=== PATIENT | male | born 1995 | race Hispanic/Latino ===

== ENCOUNTER → 2016-12-02 | Outpatient (REF) | payer OTHER ==
[~2016-12-02] MED LIST: FLUTISP; LEVO750T PO; OCEA0.65; TYLE325T5 PO; abx; zofran
== END ==
LOC: M SFHCLERA 17:44
PROVIDERS: ATTEND Physician Assistant
DX: R50.9 Fever, unspecified (principal)

== ENCOUNTER → 2017-04-02 | Outpatient (CLI) | payer OTHER ==
--- NOTE | 2017-04-02 10:14 | REP ---
Chest x-ray: Two views. History: Chest pain. . Comparison study: No comparisons . Findings: The lungs are well inflated and free of infiltrate. The pleural angles are sharp. The heart size is normal. Pulmonary vasculature is not increased. No significant bony abnormality is seen. Impression: Negative chest x-ray. Signed by Sukumar Bauer MD 04/02/2017 10:06 A
== END ==
LOC: M LRY 08:54
PROVIDERS: ATTEND Physician Assistant
DX: R07.9 Chest pain, unspecified (principal)

== ENCOUNTER → 2017-04-02 | Outpatient (REF) | payer OTHER ==
[2017-04-02 11:32] LABS: MEAN CORPUSCULAR HEMOGLOBIN 27.4 pg (27.0-33.0); MEAN CORPUSCULAR HGB CONC 32.5 g/dl (32.0-36.5); MEAN CORPUSCULAR VOLUME 84.4 fl (80.0-96.0); RED CELL DISTRIBUTION WIDTH 13.8 % (11.5-14.5); WHITE BLOOD COUNT 7.2 K/mm3 (4.0-10.0)
[2017-04-02 12:07] LABS: ALBUMIN 3.8 GM/DL (3.2-5.2); ALBUMIN/GLOBULIN RATIO 1.06 (1.00-1.93); ALKALINE PHOSPHATASE 66 U/L (45-117); ALT/SGPT 45 U/L (12-78); ANION GAP 6 MEQ/L (8-16); AST/SGOT 21 U/L (15-37); BILIRUBIN,TOTAL 0.6 MG/DL (0.2-1.0); BLOOD UREA NITROGEN 13 MG/DL (7-18); CALCIUM LEVEL 9.8 MG/DL (8.5-10.1); CARBON DIOXIDE LEVEL 30 MEQ/L (21-32); CHLORIDE LEVEL 103 MEQ/L (98-107); CREATININE FOR GFR 0.84 MG/DL (0.70-1.30); GLOMERULAR FILTRATION RATE > 60.0 (>60); GLUCOSE, FASTING 78 MG/DL (70-105); POTASSIUM SERUM 5.1 MEQ/L (3.5-5.1); SODIUM LEVEL 139 MEQ/L (136-145); TOTAL PROTEIN 7.4 GM/DL (6.4-8.2)
== END ==
LOC: M SFHCLERA 08:42
PROVIDERS: ATTEND Physician Assistant
DX: R07.9 Chest pain, unspecified (principal)

== ENCOUNTER → 2017-08-13 | Outpatient (REF) | payer OTHER ==
[~2017-08-13] MED LIST changes: +AMOX875T2 PO; +NORCOTAB PO; +SENN1TAB2 PO
== END ==
LOC: M SFHCLERA 07:53
PROVIDERS: ATTEND Family Medicine
DX: Z11.4 Encounter for screening for human immunodeficiency virus [HIV] (principal)

== ENCOUNTER 2017-08-17 13:55 | Inpatient (IN) | payer OTHER ==
[~2017-08-17] VITALS: Ht 177.8 cm; Wt 112.7 kg
[~2017-08-17 13:55] MED LIST changes: -AMOX875T2 PO; -NORCOTAB PO; -SENN1TAB2 PO
[2017-08-17] MEDS ORDERED: NS 1,000 ML IV ONE (17:45)
[2017-08-17 18:13] LABS: BASO # 0.1 10^3/uL (0.0-0.2); BASO % 0.4 % (0.0-1.0); EOS # 0.2 10^3/uL (0.0-0.50); EOS % 1.2 % (0.0-3.0); IMMATURE GRANULOCYTE % 0.2 % (0-0); LYMPH # 1.9 10^3/uL (1.5-6.5); LYMPH % 14.3 % (24.0-44.0); MEAN CORPUSCULAR HGB CONC 32.2 g/dl (32.0-36.5); MEAN CORPUSCULAR VOLUME 83.9 fl (80.0-96.0); MONO # 0.8 10^3/uL (0.0-0.8); MONO % 6.5 % (0.0-5.0); NEUTROPHILS % 77.4 % (36.0-66.0); PLATELET COUNT, AUTOMATED 276 10^3/uL (150-450); RED CELL DISTRIBUTION WIDTH 12.9 % (11.5-14.5)
[2017-08-17 18:52] LABS: ALBUMIN 4.2 GM/DL (3.2-5.2); ALBUMIN/GLOBULIN RATIO 0.93 (1.00-1.93); ALKALINE PHOSPHATASE 78 U/L (45-117); ALT/SGPT 36 U/L (12-78); AMYLASE 65 U/L (25-115); ANION GAP 7 MEQ/L (8-16); AST/SGOT 14 U/L (15-37); BILIRUBIN,DIRECT 0.2 MG/DL (0.0-0.2); BILIRUBIN,TOTAL 0.8 MG/DL (0.2-1.0); BLOOD UREA NITROGEN 11 MG/DL (7-18); CALCIUM LEVEL 9.5 MG/DL (8.5-10.1); CARBON DIOXIDE LEVEL 30 MEQ/L (21-32); CHLORIDE LEVEL 102 MEQ/L (98-107); CREATININE FOR GFR 0.91 MG/DL (0.70-1.30); GLOMERULAR FILTRATION RATE > 60.0 (>60); GLUCOSE, FASTING 81 MG/DL (70-105); POTASSIUM SERUM 3.6 MEQ/L (3.5-5.1); SODIUM LEVEL 139 MEQ/L (136-145); TOTAL PROTEIN 8.7 GM/DL (6.4-8.2)
[2017-08-17] MEDS ORDERED: ISOVUE-370 76% 100ML VIAL (Q9967) As Ordered ONE (19:01)
[2017-08-17] MEDS ORDERED: ZOSYN 3.375 GM VIAL (J2543) As Ordered ONE (20:13)
[2017-08-17] MEDS ORDERED: PIPERACILLIN/TAZOBACTAM SOD 3.375 GM in D5W 50 ML IV ONE (20:15)
[2017-08-17] MEDS ORDERED: BUPIVACAINE/EPIN 0.25% 30 ML VIAL As Ordered ONE (20:23)
[2017-08-17] MEDS ORDERED: MORPHINE 2 MG/ML 1ML SYRINGE IV PRN ×2 (20:30→22:15)
[2017-08-17] MEDS ORDERED: ACETAMINOPHEN TAB 650MG DOSE (2X325MG) PO PRN (20:30)
[2017-08-17] MEDS ORDERED: LIDOCAINE 2% INJ 100 MG/5 ML SDV (FOR ANES.) As Ordered ONE (20:34)
[2017-08-17] MEDS ORDERED: PROPOFOL 200 MG/20 ML VIAL As Ordered ONE (20:34)
[2017-08-17] MEDS ORDERED: METOCLOPRAMIDE INJ 10MG/2ML VIAL (J2765) As Ordered ONE (20:34)
[2017-08-17] MEDS ORDERED: SUCCINYLCHOLINE 100 MG/5 ML SYRINGE (J0330) As Ordered ONE (20:34)
[2017-08-17] MEDS ORDERED: ROCURONIUM BROMIDE 50 MG/5 ML VIAL/SYRINGE As Ordered ONE (20:34)
[2017-08-17] MEDS ORDERED: MIDAZOLAM INJ 2 MG/2 ML VIAL (J2250) As Ordered ONE (20:34)
[2017-08-17] MEDS ORDERED: fentaNYL 250 MCG/5 ML INJECTION (J3010) As Ordered ONE (20:35)
[2017-08-17] MEDS ORDERED: ONDANSETRON 4MG/2ML VIAL (J2405) As Ordered ONE (21:18)
[2017-08-17] MEDS ORDERED: GLYCOPYRROLATE INJ 0.2 MG/ML 2 ML VIAL As Ordered ONE (21:19)
[2017-08-17] MEDS ORDERED: NEOSTIGMINE 10 MG/10 ML VIAL (J2710) As Ordered ONE (21:19)
[2017-08-17] MEDS ORDERED: KETOROLAC 60 MG/2 ML VIAL (J1885) As Ordered ONE (21:21)
[2017-08-17] MEDS ORDERED: ePHEDrine SULFATE 25 MG/5 ML(5MG/ML) SYRINGE As Ordered ONE (21:38)
[2017-08-17] MEDS ORDERED: PERCOCET 5MG/325MG TAB PO PRN (22:15)
[2017-08-17] MEDS ORDERED: LR 1,000 ML IV SCH (22:15)
[2017-08-17] MEDS ORDERED: fentaNYL 100 MCG/2 ML INJECTION (J3010) IV PRN (22:15)
[2017-08-17] MEDS ORDERED: ONDANSETRON 4MG/2ML VIAL (J2405) IV PRN (22:15)
[2017-08-17 23:05] VITALS: BP 135/73
[2017-08-17] MEDS: ONDANSETRON 4MG/2ML VIAL (J2405) IV PRN (23:13)
[2017-08-17] MEDS: SENOKOT S TAB PO SCH (23:13)
[2017-08-17] MEDS: LR 1,000 ML IV SCH (23:13)
[2017-08-17 23:30] VITALS: BP 133/70
[2017-08-18] VITALS (9 sets, daily range): BP systolic 114–141; BP diastolic 53–81
[2017-08-18] MEDS: PIPERACILLIN/TAZOBACTAM SOD 3.375 GM in D5W 50 ML IV SCH ×4 (02:21→20:55)
[2017-08-18] MEDS: HEPARIN SOD (PORCINE) 5000 UNITS/ML VIAL SC SCH ×3 (05:45→21:19)
[2017-08-18] MEDS: NORCO, ANEXSIA 5/325MG TABLET (HYDROcodone/ACETAMINOPHEN) PO PRN ×2 (06:16→21:20)
[2017-08-18 06:54] LABS: MEAN CORPUSCULAR HGB CONC 32.2 g/dl (32.0-36.5); MEAN CORPUSCULAR VOLUME 83.8 fl (80.0-96.0); PLATELET COUNT, AUTOMATED 271 10^3/uL (150-450); RED CELL DISTRIBUTION WIDTH 13.1 % (11.5-14.5); WHITE BLOOD COUNT 15.6 10^3/uL (4.0-10.0)
[2017-08-18 07:17] LABS: ANION GAP 5 MEQ/L (8-16); BLOOD UREA NITROGEN 9 MG/DL (7-18); CALCIUM LEVEL 8.8 MG/DL (8.5-10.1); CARBON DIOXIDE LEVEL 30 MEQ/L (21-32); CHLORIDE LEVEL 106 MEQ/L (98-107); CREATININE FOR GFR 1.17 MG/DL (0.70-1.30); GLOMERULAR FILTRATION RATE > 60.0 (>60); GLUCOSE, FASTING 108 MG/DL (70-105); MAGNESIUM LEVEL 1.8 MG/DL (1.8-2.4); POTASSIUM SERUM 4.4 MEQ/L (3.5-5.1); SODIUM LEVEL 141 MEQ/L (136-145)
[2017-08-18] MEDS: LR 1,000 ML IV SCH (07:46)
--- NOTE | 2017-08-18 09:16 | HPE ---
DATE OF ADMISSION: 08/17/2017 CHIEF COMPLAINT: Abdominal pain. HISTORY OF PRESENT ILLNESS: The patient is a 22-year-old male who presents with right lower quadrant abdominal pain that has been present for the past week. He had persistent pain that was not getting any better. No signs of any fevers, slight amount of nausea. He came into the emergency room today because the pain was persistent. A CT scan was obtained, which revealed that there was a very dilated appendix with a fecalith in it. No other complaints at this time. Only other abdominal surgery was bilateral inguinal hernia repair when he was about 1 years old. PAST MEDICAL HISTORY: Negative. PAST SURGICAL HISTORY: Bilateral inguinal hernia repair. ALLERGIES: None. HOME MEDICATIONS: None. SOCIAL HISTORY: Denies drug, alcohol, tobacco abuse. FAMILY HISTORY: Noncontributory. REVIEW OF SYSTEMS: Pertinent positives as listed in the history of present illness (HPI). PHYSICAL EXAMINATION: General: Alert and oriented times three. No acute distress. Vital signs: Temperature 99.1, pulse 98, respirations 16, blood pressure 149/86, pulse oximetry 99% on room air. HEENT: Pupils equally round and react to light accommodation. Heart: S1, S2, regular rate and rhythm. Lungs: Clear to auscultation bilaterally. Abdomen: Soft, tender above the patient's right lower quadrant. No rebounding or rigidity. Localized guarding. Extremities: No clubbing, cyanosis or edema. LABORATORY DATA: White count 13, hemoglobin 16.1, platelets 276. IMAGING STUDIES: CT abdomen and pelvis reveals a dilated appendix 14 mm along with a 9 mm appendicolith within it. ASSESSMENT/PLAN: The patient is a 22-year-old male with signs and symptoms consistent with acute appendicitis. RECOMMENDATION: To proceed with laparoscopic, possible open appendectomy. Risks and benefits of the procedure not limited to but including bleeding, infection, hernia formation, damage to surrounding structures, need for further surgery were discussed in detail with the patient. Informed consent was obtained. Procedure was planned. Postoperatively, he will likely be kept in the hospital overnight, kept on intravenous (IV) fluids and antibiotics. Will plan to discharge home in the morning as long as he is afebrile and white count shows signs of improvement.
[2017-08-18] MEDS: SENOKOT S TAB PO SCH ×2 (09:59→20:55)
--- NOTE | 2017-08-18 11:12 | RO ---
DATE OF PROCEDURE: 08/17/2017 PREOPERATIVE DIAGNOSIS: Acute appendicitis. POSTOPERATIVE DIAGNOSIS: Acute appendicitis. PROCEDURE: Laparoscopic appendectomy. SURGEON: Brett Nevarez DO ACCOUNT ASSOCIATE: None. ANESTHESIA: General. ESTIMATED BLOOD LOSS (EBL): 10 mL. COMPLICATIONS: None. INDICATIONS FOR PROCEDURE: Patient is a 22-year-old male presents with a one week history of right lower quadrant pain. In the emergency room (ER) had a CT scan which showed dilated appendix with a appendicolith within it. Recommendation was to proceed with laparoscopic possible open appendectomy. Risks and benefits of the procedure, not limited to, but including, bleeding, infection, hernia formation, damage to surrounding structures, need for further surgery discussed in detail with the patient. Informed consent was obtained. Procedure was planned. DESCRIPTION OF PROCEDURE: Patient brought back to operating room 3. After sufficient sedation the abdomen was sterilely prepped and draped. Next, time-out was done to confirm proper patient proper procedure. Following that, a 5 mm incision was made in the left upper quadrant. Veress needle was inserted, and the abdomen was insufflated 50 mmHg. Next, the Veress needle was removed, and a 5 mm Optiview port was used to gain access to the abdomen. Once the abdomen was entered, another 10 mm port was placed infraumbilically in the midline, another 5 mm port suprapubically in the midline. Patient was rotated to the left. The periappendiceal fat was carefully dissected free from the appendix. There was a retrocecal appendix on the right. The peritoneum had to be incised from the base of the cecum all the way up around to the lateral wall the cecum to free up the base of the appendix as it was curving posteriorly. The appendix was carefully dissected free circumferentially starting at the base. Once this was carefully freed up, I was able to keep it elevated and go through the rest of the mesoappendix using the Enseal. Once this was completed, two PDS Endoloops were placed around the base of the appendix to ligate it. Appendix was then amputated using the Enseal, brought out through the 10 mm port site in an EndoCatch bag. Right lower quadrant was then aspirated to make sure hemostasis was achieved. A #19-[place] Keon drain was placed in the right lower quadrant alongside the bed of where the appendix was lying, brought out through the suprapubic incision site, sutured in place with #2-0 silk suture. Abdomen was then desufflated. Skin incisions closed #4-0 Vicryl subcuticular sutures. The abdomen was cleaned and dried. Steri-Strips, 4x4, and tape were applied, thus ending procedure.
[2017-08-18] MEDS: ONDANSETRON 4MG/2ML VIAL (J2405) IV PRN (11:45)
[2017-08-18] MEDS: KETOROLAC 30 MG/ML VIAL (J1885) IV PRN (11:45)
--- NOTE | 2017-08-18 14:55 | REP ---
Clinical: Periumbilical and right lower quadrant pain. Technique: Axial contrast enhanced images from the lung bases to the pubic symphysis using 100 ml Isovue 370 intravenous contrast material with coronal and sagittal re-formations. Findings: Findings consistent with acute appendicitis include a dilated thickened appendix measuring 15 mm diameter with 10 mm appendicolith, periappendiceal inflammatory stranding, small amount of free fluid, and reactive adenopathy (images 80 - 115). No associated bowel obstruction, free air to suggest perforation, or drainable collection/abscess. The remainder of the small and large bowel is grossly unremarkable. Visualized heart and pericardium normal. Liver, spleen, pancreas, gallbladder, bilateral adrenal glands and kidneys are normal. Pelvis demonstrates normal bladder and age appropriate prostate/seminal vesicles. No retroperitoneal adenopathy. No obvious mass lesion. Vasculature is normal. Surrounding musculoskeletal structures are intact. Lung bases demonstrate trace right basilar atelectasis. Impression: Acute appendicitis with a 10 mm appendicolith and moderate periappendiceal stranding, reactive adenopathy, and pelvic fluid. No bowel obstruction/perforation or drainable collection/ abscess. Signed by Craig Escalante MD 08/18/2017 02:46 P
[2017-08-19] MEDS: PIPERACILLIN/TAZOBACTAM SOD 3.375 GM in D5W 50 ML IV SCH ×4 (01:43→21:00)
[2017-08-19 03:00] VITALS: BP 119/69
[2017-08-19] MEDS: HEPARIN SOD (PORCINE) 5000 UNITS/ML VIAL SC SCH ×3 (06:17→21:00)
[2017-08-19 06:48] LABS: MEAN CORPUSCULAR HEMOGLOBIN 27.1 pg (27.0-33.0); MEAN CORPUSCULAR VOLUME 84.6 fl (80.0-96.0); PLATELET COUNT, AUTOMATED 269 10^3/uL (150-450); RED CELL DISTRIBUTION WIDTH 13.2 % (11.5-14.5); WHITE BLOOD COUNT 18.4 10^3/uL (4.0-10.0)
[2017-08-19 07:04] LABS: ANION GAP 8 MEQ/L (8-16); BLOOD UREA NITROGEN 12 MG/DL (7-18); CARBON DIOXIDE LEVEL 28 MEQ/L (21-32); CHLORIDE LEVEL 102 MEQ/L (98-107); CREATININE FOR GFR 1.23 MG/DL (0.70-1.30); GLOMERULAR FILTRATION RATE > 60.0 (>60); GLUCOSE, FASTING 99 MG/DL (70-105); MAGNESIUM LEVEL 2.1 MG/DL (1.8-2.4); SODIUM LEVEL 138 MEQ/L (136-145)
[2017-08-19 08:45] VITALS: BP 129/67
[2017-08-19] MEDS: SENOKOT S TAB PO SCH ×2 (09:01→21:00)
[2017-08-19] MEDS: KETOROLAC 30 MG/ML VIAL (J1885) IV PRN (09:01)
[2017-08-19 11:11] LABS: MEAN CORPUSCULAR HEMOGLOBIN 27.4 pg (27.0-33.0); MEAN CORPUSCULAR HGB CONC 32.2 g/dl (32.0-36.5); MEAN CORPUSCULAR VOLUME 85.1 fl (80.0-96.0); PLATELET COUNT, AUTOMATED 259 10^3/uL (150-450); RED CELL DISTRIBUTION WIDTH 13.2 % (11.5-14.5); WHITE BLOOD COUNT 18.6 10^3/uL (4.0-10.0)
[2017-08-19 13:00] VITALS: BP 125/69
--- NOTE | 2017-08-19 15:44 | REP ---
Chest x-ray: Two views. History: Question postoperative pneumonia. . Comparison study: April 02, 2017 . Findings: Today's views are exposed at a slightly lesser level of inspiration than the prior study. The lungs are otherwise well inflated and free of infiltrate. The pleural angles are sharp. The heart size is normal. Pulmonary vasculature is not increased. No significant bony abnormality is seen. Impression: No active disease . Signed by Sukumar Bauer MD 08/19/2017 03:35 P
[2017-08-19 16:45] VITALS: BP 126/74
[2017-08-19 20:00] VITALS: BP 125/67
[2017-08-20] VITALS: BP 123/62
[2017-08-20] MEDS: PIPERACILLIN/TAZOBACTAM SOD 3.375 GM in D5W 50 ML IV SCH ×4 (02:49→20:31)
[2017-08-20] MEDS: ONDANSETRON 4MG/2ML VIAL (J2405) IV PRN (03:08)
[2017-08-20 04:00] VITALS: BP 133/69
[2017-08-20] MEDS: HEPARIN SOD (PORCINE) 5000 UNITS/ML VIAL SC SCH ×3 (06:02→21:51)
[2017-08-20 06:53] LABS: MEAN CORPUSCULAR HEMOGLOBIN 27.3 pg (27.0-33.0); MEAN CORPUSCULAR HGB CONC 32.4 g/dl (32.0-36.5); MEAN CORPUSCULAR VOLUME 84.3 fl (80.0-96.0); PLATELET COUNT, AUTOMATED 253 10^3/uL (150-450); RED CELL DISTRIBUTION WIDTH 13.1 % (11.5-14.5); WHITE BLOOD COUNT 13.8 10^3/uL (4.0-10.0)
[2017-08-20 07:15] LABS: ANION GAP 6 MEQ/L (8-16); BLOOD UREA NITROGEN 12 MG/DL (7-18); CALCIUM LEVEL 8.8 MG/DL (8.5-10.1); CARBON DIOXIDE LEVEL 30 MEQ/L (21-32); CHLORIDE LEVEL 103 MEQ/L (98-107); CREATININE FOR GFR 1.23 MG/DL (0.70-1.30); GLOMERULAR FILTRATION RATE > 60.0 (>60); GLUCOSE, FASTING 102 MG/DL (70-105); MAGNESIUM LEVEL 2.2 MG/DL (1.8-2.4); POTASSIUM SERUM 3.7 MEQ/L (3.5-5.1); SODIUM LEVEL 139 MEQ/L (136-145)
[2017-08-20 08:30] VITALS: BP 122/58
[2017-08-20] MEDS: SENOKOT S TAB PO SCH ×2 (08:35→20:32)
[2017-08-20 12:30] VITALS: BP 115/55
[2017-08-20 16:15] VITALS: BP 120/57
[2017-08-21] MEDS: PIPERACILLIN/TAZOBACTAM SOD 3.375 GM in D5W 50 ML IV SCH ×2 (01:52→08:06)
[2017-08-21 02:00] VITALS: BP 126/68
[2017-08-21] MEDS: HEPARIN SOD (PORCINE) 5000 UNITS/ML VIAL SC SCH (06:08)
[2017-08-21 07:44] LABS: MEAN CORPUSCULAR HEMOGLOBIN 26.7 pg (27.0-33.0); MEAN CORPUSCULAR HGB CONC 31.5 g/dl (32.0-36.5); MEAN CORPUSCULAR VOLUME 84.8 fl (80.0-96.0); PLATELET COUNT, AUTOMATED 290 10^3/uL (150-450); RED CELL DISTRIBUTION WIDTH 13.1 % (11.5-14.5); WHITE BLOOD COUNT 11.6 10^3/uL (4.0-10.0)
[2017-08-21 08:00] VITALS: BP 135/85
[2017-08-21] MEDS: SENOKOT S TAB PO SCH (08:06)
[2017-08-21 08:19] LABS: ANION GAP 7 MEQ/L (8-16); BLOOD UREA NITROGEN 11 MG/DL (7-18); CALCIUM LEVEL 8.7 MG/DL (8.5-10.1); CARBON DIOXIDE LEVEL 30 MEQ/L (21-32); CHLORIDE LEVEL 103 MEQ/L (98-107); CREATININE FOR GFR 0.94 MG/DL (0.70-1.30); GLOMERULAR FILTRATION RATE > 60.0 (>60); GLUCOSE, FASTING 89 MG/DL (70-105); MAGNESIUM LEVEL 2.3 MG/DL (1.8-2.4); POTASSIUM SERUM 4.4 MEQ/L (3.5-5.1); SODIUM LEVEL 140 MEQ/L (136-145)
[2017-08-21] MEDS ORDERED: AMOX875T2 PO (08:36)
[2017-08-21] MEDS ORDERED: NORCOTAB PO (08:36)
[2017-08-21] MEDS ORDERED: SENN1TAB2 PO (08:36)
--- NOTE | 2017-08-22 08:19 | DSES ---
DATE OF ADMISSION: 08/17/2017 DATE OF DISCHARGE: 08/21/2017 ADMISSION DIAGNOSIS: Perforated appendicitis. DISCHARGE DIAGNOSIS: Perforated appendicitis. HOSPITAL COURSE: The patient is a 22-year-old male who presented to the emergency room (ER) with acute appendicitis. He brought to the operating room, found to have a ruptured appendix. He underwent a laparoscopic appendectomy and had drain placed. Postoperatively, he has had difficulties with elevated white count postop day 2 and 3. This white count increased rather than decreased so he was kept in the hospital for the reasons. Continued on IV fluids and antibiotics. Chest x-ray did reveal poor inspiratory effort and some atelectasis so he was encouraged to ambulate and use incentive spirometer. Yesterday morning 08/20 his white count had come down from 18 to 13 and I was considering discharge, however, he had a slight fever, so we decided to keep him for another 24 hours. This morning he is feeling really good and his drain in his abdomen is all serosanguineous, pain is gone, he has had a few bowel movement, he is ambulating, doing really well the incentive spirometer, his white counts down to 11.6, and he has been afebrile for the last 24 hours. PLAN: Discharge home today. We will give him antibiotics for 5 days, pain pill, and a stool softener and he has the number to call our office if he has any problems or questions.
== END 2017-08-21 10:00 | disposition home or self-care (01) | DRG 225 ==
LOC: M ED 13:55 → M SDC 20:10 → M PED 22:50 → M SDC 08-19 12:36 → M PED 08-19 12:37
PROVIDERS: ADMIT Surgery; ATTEND Surgery
PROC: 0DTJ4ZZ Resection of Appendix, Percutaneous Endoscopic Approach (ICD-10-PCS; principal; 2017-08-17 20:09)
DX: K35.2 Acute appendicitis with generalized peritonitis (principal)

== ENCOUNTER → 2018-12-18 | Outpatient (REF) | payer OTHER ==
[~2018-12-18] MED LIST changes: +AMOX875T2 PO; +NORCOTAB PO; +SENN1TAB2 PO
== END ==
LOC: M SFHCLERA 09:32
PROVIDERS: ATTEND Nurse Practitioner Family
DX: Z11.3 Encounter for screening for infections with a predominantly sexual mode of transmission (principal)

== ENCOUNTER → 2019-05-26 | Outpatient (REF) | payer OTHER ==
[~2019-05-26] MED LIST changes: +FLUT1SPR2; -FLUTISP; +HYDR-3715 PO; -NORCOTAB PO; -SENN1TAB2 PO; +SENN1TAB40 PO
== END ==
LOC: M SFHCLERA 09:31
PROVIDERS: ATTEND Nurse Practitioner Family
DX: Z11.4 Encounter for screening for human immunodeficiency virus [HIV] (principal)

== ENCOUNTER → 2020-12-14 | Outpatient (CLI) | payer OTHER ==
[~2020-12-14] MED LIST changes: +SENN-53 PO; -SENN1TAB40 PO
[2020-12-14 20:53] LABS: HIV 1&2 SCREEN CENTAUR NEGATIVE (NEGATIVE)
[2020-12-14 22:40] LABS: CHLAMYDIA DNA AMPLIFICATION NEGATIVE (NEGATIVE); GC DNA AMPLIFICATION NEGATIVE (NEGATIVE)
== END ==
LOC: M WUC 15:19
PROVIDERS: ATTEND Nurse Practitioner Family
DX: Z11.3 Encounter for screening for infections with a predominantly sexual mode of transmission (principal)